=== PATIENT | male | born 1945 | race Caucasian/White ===

== ENCOUNTER → 2017-11-24 | Outpatient (CLI) | payer MEDICARE ==
[~2017-11-24] MED LIST: ALEV220T14 PO; ASPI1TAB57 PO; CEPH500C3 PO; COEN400C PO; ECASA81 PO; FERR325T72 PO; GRAP50CA PO; LACTTAB5 PO; MSM1000C PO; OMEGCAP PO; OXYC1TAB63 PO; SULF1TAB47 PO; VENTAER INH; VITA2000 PO; WALKER/ADULT/FO1 MIS
== END ==
LOC: CPRE 11:44
PROVIDERS: ATTEND Orthopaedic Surgery Orthopaedic Surgery of the Spine
DX: M17.11 Unilateral primary osteoarthritis, right knee (principal)

== ENCOUNTER 2017-12-02 08:21 | Inpatient (IN) | payer MEDICARE ==
[~2017-12-02] VITALS: Ht 182.9 cm; Wt 100.8 kg
[~2017-12-02 08:21] MED LIST changes: -CEPH500C3 PO; -ECASA81 PO; -OXYC1TAB63 PO; -SULF1TAB47 PO; -WALKER/ADULT/FO1 MIS
[2017-12-02] MEDS ORDERED: CHLORHEXIDINE GLUCONATE 2 % 1 PACK (2 CLOTHS) TOPICAL PRN (09:00)
[2017-12-02] MEDS ORDERED: METOPROLOL TARTRATE 25 MG TAB PO PRN (09:00)
[2017-12-02] MEDS ORDERED: VANCOMYCIN 1000 MG/NS 250 ML (for <70 kg) IV SCH ×2 (09:00)
[2017-12-02] MEDS ORDERED: EXPAREL PERI-ARTICULAR INJECTION (TOTAL VOL. 60 ML) P-ARTICULR SCH ×2 (09:00)
[2017-12-02] MEDS ORDERED: SODIUM CHLORIDE 0.9% IV SCH (09:00)
[2017-12-02] MEDS ORDERED: ceFAZolin 2 GM PREMIX 50 ML IV SCH (09:00)
[2017-12-02] MEDS ORDERED: LACTATED RINGER'S 1000 ML IV PRN (09:00)
[2017-12-02] MEDS ORDERED: TRANEXAMIC ACID IV SCH (09:00)
[2017-12-02] MEDS ORDERED: CHLORHEXIDINE GLUCONATE 4% SOLN 120 ML BTL TOPICAL SCH (09:00)
[2017-12-02] MEDS ORDERED: POVIDONE IODINE 5% (ANTISEPSIS KIT) 4 APPLICATIONS EACH NARE PRN (09:00)
[2017-12-02] MEDS ORDERED: SODIUM CHLORID 0.9% 500 ML IV PRN (09:00)
[2017-12-02 09:59] VITALS: PULSE 61
[2017-12-02] MEDS ORDERED: GENTAMICIN SULFATE 80 MG/2 ML VIAL ONE (10:17)
[2017-12-02] MEDS ORDERED: BUPIVACAINE/EPINEPHRINE 0.25% 50 ML VIAL ONE (10:17)
[2017-12-02] MEDS ORDERED: ROPIVACAINE 0.5% PF INJ 30 ML VIAL ONE (10:28)
[2017-12-02] MEDS ORDERED: MIDAZOLAM HCL 2 MG/2 ML VIAL ONE (10:28)
[2017-12-02] MEDS ORDERED: ACETAMINOPHEN 1000 MG/100 ML 100 ML IV ONE (11:13)
[2017-12-02] MEDS: LACTATED RINGER'S 1000 ML INJ 1,000 ML IV SCH (13:20)
[2017-12-02] MEDS ORDERED: MORPHINE SULFATE 8 MG/ML INJ IM PRN (13:30)
[2017-12-02] MEDS ORDERED: Post-op Orders (for Pharmacy) XX ONE (13:30)
[2017-12-02] MEDS ORDERED: ASPIRIN EC 81 MG TABEC PO ONE (13:30)
[2017-12-02] MEDS ORDERED: TEMAZEPAM 15 MG CAP PO PRN (13:30)
[2017-12-02] MEDS ORDERED: oxyCODONE/ACETAMINOPHEN 5 MG/325 MG TAB PO PRN ×2 (13:30)
[2017-12-02] MEDS ORDERED: NALOXONE HCL 0.4 MG/ML AMP IV PUSH PRN (13:30)
--- NOTE | 2017-12-02 13:33 | PD.OP ---
cc: Naveen Johnson MD Operative Report Date of Surgery: December 02, 2017 Preoperative Diagnosis: (1) Rheumatoid arthritis involving left knee Postoperative Diagnosis: (1) Rheumatoid arthritis involving left knee Procedure: Left total knee replacement arthroplasty, kinematic retaining Anesthesia: General with regional for pain control Surgeon: Naveen Johnson Housekeeping Staff(s): SHEREE Hinkle Operation and Findings: EBL: 100 cc INDICATION: This patient presents with long-standing arthritis of the knee. This patient has serologic markers consistent with rheumatoid arthritis and advanced rheumatoid inflammatory changes. Attachment record documents conservative measures. The patient now presents for surgical treatment. NOTE: Shaina Hinkle PA-C was present for the entire surgical procedure as my social service assistant. In my medical opinion her skill and care was necessary for proper management of this patient. TOURNIQUET TIME: 59 minutes COMPANY: [employer] FEMUR: Size 8, cruciate retaining TIBIA: Size 8, fixed-bearing PATELLA: 38 mm POLYETHYLENE INSERT: 12 mm, kinematic retaining PROCEDURE: This patient was brought the operating room and anesthetized in the supine position. The patient was positioned supine on the table. The tourniquet was placed about the thigh, and the leg was scrubbed with alcohol followed by Hibiclens followed by ChloraPrep and draped sterilely. A timeout was done, and antibiotics were given. After exsanguination the tourniquet was inflated to 250 mmHg. An anterior incision was made and a median parapatellar arthrotomy was performed. The patella was released laterally and subluxed allowing freehand cut of the patella which was then sized. A metal cap was placed over the exposed patellar surface for protection. There was significant inflammatory changes consistent with aggressive rheumatoid arthritis. A total synovectomy was accomplished. A instructor pilot hole was placed in the distal femur allowing a 4 valgus cut removing 10 mm from the distal femur. Anterior posterior and chamfer cuts were made. The posterior stabilize osteotomy was not made. The attention was directed to the tibia. Retractors were positioned. The external alignment guide was used allowing the lateral tibia to be used as referencing guide and cut utilizing an oscillating saw taking care to avoid any injury to the surrounding soft tissues. This was sized properly. Trial reduction showed that the insert fit nicely. The patient had range of motion extension 0 flexion 125. A medial release was not necessary. The bony surfaces prepared. On the back table 2 packets of methylmethacrylate were mixed. The components were cemented. Excess cement was removed. The tourniquet let down and hemostasis was controlled. The final plastic insert was inserted. Range of motion was the same as previously noted. A drain was brought through a separate stab incision. The arthrotomy was repaired with interrupted #1 Vicryl suture, subcutaneous tissue 2-0 Vicryl suture and skin with metallic francheska A sterile dressing was applied. Sponge counts, needle counts and instrument counts were all correct. The patient tolerated procedure well and was taken to recovery in satisfactory condition. FINDINGS: There was advanced rheumatoid changes. Significant loss of articular cartilage from inflammatory changes were noted. There was no complication. Alignment appeared to be very satisfactory Naveen Johnson MD December 02, 2017 13:33
[2017-12-02] MEDS ORDERED: ECASA81 PO (13:35)
[2017-12-02] MEDS ORDERED: WALKER/ADULT/FO1 MIS (13:35)
[2017-12-02] MEDS ORDERED: OXYC1TAB63 PO (13:35)
--- NOTE | 2017-12-02 13:37 | HHI.FF ---
Face to Face Verification Diagnosis: (1) Rheumatoid arthritis involving left knee Physical Therapy Gait training Knee: Total knee Left LE Weight Bearing: WB as tolerated Additional Instructions Daily for 2 weeks Nursing x Week(s): 2 Nursing: Other (Wound monitoring and evaluation for possible complications of total knee replacement) Dressing Changes: Do not change dressing I have seen patient Arslan Peoples on 12/02/17. My clinical findings support the need for the requested home health care services because: Limited ability to care for self High risk of falls I certify that my clinical findings support that this patient is homebound because: Post-op weakness Unsteady gait/balance Naveen Johnson MD December 02, 2017 13:37
--- NOTE | 2017-12-02 13:40 | HHI.DS ---
Discharge Summary Admission Date December 02, 2017 at 08:21 Discharge Date: December 03, 2017 Admitting Diagnosis Rheumatoid arthritis Diagnosis: (1) Rheumatoid arthritis involving left knee Diagnosis: Principal ICD Codes: M06.9 - Rheumatoid arthritis, unspecified Brief History This is a 72 year old male patient with long-standing rheumatoid arthritis. The patient developed debilitating pain of the left knee and despite over 1 year of conservative care, he continues to be painful and presents for surgical treatment. He has had injections, oral medications, physical therapy, gait aids. He presents now for surgical treatment Imaging Postoperative AP and lateral of the left knee shows well positioned components for cemented total knee replacementAP and lateral of the left knee postoperative shows well-positioned cemented total knee components PE at Discharge Stable. No evidence of infection or DVT. Hospital Course The patient was admitted. On the date of admission he had a cemented total knee replacement. He had minimal blood loss during surgery of less than 100 cc. Postoperative x-rays were satisfactory. He was transferred to the recovery room and then to the floor. His diet progressed to regular diet and weightbearing as tolerated. The patient was thought to be a candidate for discharge to home with home health care on the first postoperative day Pt Condition on Discharge: Good Discharge Disposition: Disch w/ Home Health Serv Discharge Instructions Diet Instructions: As Tolerated, No Restrictions Activities You Can Perform: Regular-No Restrictions, Weight Bearing as Julio Activities to Avoid: Bathing Naveen Johnson MD December 02, 2017 13:40
[2017-12-02] MEDS ORDERED: DO NOT ADM ANY ANTICOAGULANT DRUGS PRN (13:56)
[2017-12-02] MEDS ORDERED: ASPIRIN 81 MG CHEW TAB ONE (14:09)
[2017-12-02] MEDS ORDERED: *morphine SULFATE 10 MG/ML PERIprocedure ONLY ONE (14:28)
--- NOTE | 2017-12-02 14:58 | RADRPT ---
EXAM DATE/TIME: 12/02/2017 14:17 [facility] COMPARISON: No previous studies available for comparison. INDICATIONS : Post op left total knee. MEDICAL HISTORY : Unobtainable. SURGICAL HISTORY : Unobtainable. ENCOUNTER: Initial ACUITY: 1 day PAIN SCORE: Non-responsive. LOCATION: Left knee. FINDINGS: Frontal and lateral portable radiographs of the left knee demonstrate a total knee arthroplasty. Over lying skin francheska, surgical drain, subcutaneous air identified. The tibial and femoral components ap pear well seated. CONCLUSION: Postoperative changes. Gokul Kapoor MD on December 02, 2017 at 14:54 Board Certified Radiologist. This report was verified electronically.
[2017-12-02] MEDS ORDERED: ALBUTEROL SULFATE 90 MCG/ACT HFA 8 GM INHALER INH PRN (15:30)
[2017-12-02 16:17] VITALS: BP 154/70; PULSE 67; RESP 18; TEMP 97.6; O2SAT 95
[2017-12-02 20:00] VITALS: BP 159/74; PULSE 82; RESP 18; TEMP 97.4; O2SAT 94
[2017-12-02] MEDS: ASPIRIN EC 81 MG TABEC PO SCH (21:44)
[2017-12-03 00:23] VITALS: BP 148/68; PULSE 89; RESP 18; TEMP 98.3; O2SAT 93
[2017-12-03] MEDS: LACTATED RINGER'S 1000 ML INJ 1,000 ML IV SCH (02:49)
[2017-12-03 04:25] VITALS: BP 163/76; PULSE 74; RESP 18; TEMP 98.4; O2SAT 92
[2017-12-03 06:18] LABS: HEMATOCRIT 37.5 % (39.0-51.0); HEMOGLOBIN 12.3 GM/DL (13.0-17.0)
--- NOTE | 2017-12-03 07:19 | PD.ORT.PN ---
Subjective Subjective Remarks Doing well. Patient appears very comfortable. No complaints Objective Vitals Vital Signs Date Time Temp Pulse Resp B/P (MAP) Pulse Ox O2 Delivery O2 Flow Rate FiO2 12/03/17 04:25 98.4 74 18 163/76 (105) 92 12/03/17 00:23 98.3 89 18 148/68 (94) 93 12/02/17 20:00 97.4 82 18 159/74 (102) 94 12/02/17 16:17 97.6 67 18 154/70 (98) 95 12/02/17 15:30 97.0 62 16 159/73 (101) 94 Nasal Cannula 2 12/02/17 15:00 64 19 152/74 (100) 95 Nasal Cannula 2 12/02/17 14:45 73 24 153/84 (107) 94 Nasal Cannula 2 12/02/17 14:30 71 18 151/80 (103) 95 Nasal Cannula 2 12/02/17 14:15 83 20 144/70 (94) 94 Nasal Cannula 2 12/02/17 14:00 94 24 147/68 (94) 94 Nasal Cannula 2 12/02/17 13:50 97.5 76 15 153/72 (99) 94 Nasal Cannula 2 12/02/17 09:59 97 Nasal Cannula 2 12/02/17 09:59 61 12/02/17 09:25 97.9 65 18 151/79 (103) 95 I/O 12/02/17 12/02/17 12/02/17 12/03/17 12/03/17 12/03/17 07:00 15:00 23:00 07:00 15:00 23:00 Intake Total 1800 ml 600 ml 520 ml Output Total 100 ml 220 ml 140 ml Balance 1700 ml 380 ml 380 ml Intake Oral 600 ml 320 ml IV Total 200 ml Other 1800 ml Output Drainage Total 220 ml 140 ml Estimated Blood Loss 100 ml # Voids 5 # Bowel Movements 0 Result Diagram: 12/03/17 0603 Imaging Last 24 hours Impressions Knee X-Ray 12/02/17 1320 Signed Impressions: Service Date/Time: Saturday, December 02, 2017 14:17 - CONCLUSION: Postoperative changes. Gokul Kapoor MD Objective Remarks Stable. No evidence of infection or DVT. Incision dry. Minimal drainage Assessment & Plan Problem List: (1) Rheumatoid arthritis involving left knee ICD Codes: M06.9 - Rheumatoid arthritis, unspecified Qualifiers: Qualified Codes: M05.762 - Rheumatoid arthritis with rheumatoid factor of left knee without organ or systems involvement Assessment and Plan Rheumatoid arthritis. SURGERY: Left TKA: POD #1. PLAN: Weightbearing as tolerated. DC drain. No dressing change. Discharge to home today. Home health care and home PT. Follow-up in 2 weeks. Oxycodone for pain, prescription written. Enteric-coated aspirin 81 mg twice daily for 30 days. Knee immobilizer at night for 4 weeks Naveen Johnson MD December 03, 2017 07:19
--- NOTE | 2017-12-03 07:26 | HHI.DCPOC ---
Discharge Care Plan Diagnosis: (1) Rheumatoid arthritis involving left knee Your Health Problems Are: Incision/Drains Goals to Promote Your Health * To prevent worsening of your condition and complications * To maintain your health at the optimal level Directions to Meet Your Goals Take your medications as prescribed Follow your dietary instruction Follow activity as directed Keep your appointments as scheduled Take your immunizations and boosters as scheduled If your symptoms worsen call your PCP, if no PCP go to Urgent Care Center or Emergency Room Smoking is Dangerous to Your Health. Avoid second hand smoke Call the 24-hour hour crisis hotline for domestic abuse at Naveen Johnson MD December 03, 2017 07:26
[2017-12-03 08:00] VITALS: BP 165/74; PULSE 83; RESP 16; TEMP 98.3; O2SAT 93
[2017-12-03] MEDS: ASPIRIN EC 81 MG TABEC PO SCH (08:03)
[2017-12-03 12:00] VITALS: BP 177/79; PULSE 76; RESP 16; TEMP 98.1; O2SAT 94
== END 2017-12-03 14:23 | disposition home health service (06) | DRG 470 ==
LOC: HSDI 08:21 → N06B 15:42
PROVIDERS: ADMIT Orthopaedic Surgery Orthopaedic Surgery of the Spine; ATTEND Orthopaedic Surgery Orthopaedic Surgery of the Spine
PROC: 3E0T3BZ Introduction of Anesthetic Agent into Peripheral Nerves and Plexi, Percutaneous Approach (ICD-10-PCS; 2017-12-02)
PROC: 0SRD0J9 Replacement of Left Knee Joint with Synthetic Substitute, Cemented, Open Approach (ICD-10-PCS; principal; 2017-12-02 11:15)
DX: M06.862 Other specified rheumatoid arthritis, left knee (principal); J44.9 Chronic obstructive pulmonary disease, unspecified; E66.9 Obesity, unspecified; Z68.30 Body mass index [BMI] 30.0-30.9, adult
CPT/HCPCS: 73560; 85014; 85018; 86850; 86900; 86901; 86920; 94150; C1776; J0131; J0690; J1580; J2250; J2270; J2795; J3010; J3370; J7050; J7120; L1830